=== PATIENT | female | born 1985 | race Caucasian/White ===

== ENCOUNTER 2019-02-08 15:20 | Emergency (ER) | payer MEDICAID ==
[~2019-02-08] VITALS: Ht 154.9 cm; Wt 57.0 kg
[2019-02-08 19:16] VITALS: BP 125/78
== END 2019-02-08 19:17 | disposition home or self-care (01) ==
LOC: ER 15:20
DX: M77.8 Other enthesopathies, not elsewhere classified (principal)
CPT/HCPCS: 29130; 73140; 99283